=== PATIENT | female | born 1985 | race Caucasian/White ===

== ENCOUNTER 2023-07-31 19:54 | Emergency (ER) | payer BC, SELFPAY ==
[2023-07-31 20:00] VITALS: BP 130/86
--- NOTE | 2023-07-31 21:17 | ED.GENMED ---
History of Present Illness
General
Chief Complaint: Fever
Source: patient
Exam Limitations: none
Time Seen by Provider: 07/31/23 21:05
Nursing documentation reviewed up to this point in time: agreed with
Travel History
Have you had any contact with someone who has COVID-19?: No
Do you have any symptoms of coronavirus? Fever > 100 degrees, chills, cough, shortness of breath, sore throat, loss of taste or smell, muscle aches, or headache?: No
History of Present Illness
History of Present Illness:
Patient is a 38-year-old female who presents to the ER for evaluation. Patient reports 7 days ago she noticed discomfort to the right side of her breast. 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
developed fevers/chills/shakes. She called her [facility] and was given a prescription for Augmentin for possible mastitis. She has taken 6 doses since. She did have a fever yesterday did not have a fever today until tonight. She reports tonight
around 7:00 her temperature was 102. Because her fever redeveloped she wanted to be sure that the antibiotic is working. She complains of only minimal redness to the top of her breast but does complain of soreness to the top of her right breast.
She denies any nipple discharge. She is currently nursing her 2 yr old 3-4 times per day.
Past History
Past History
ED Past Medical History: GERD and Other (Depression, anxiety)
ED Past Surgical History: None
Social History
Tobacco: Non-smoker
Alcohol: Occasional
Drug: None
Personal:
Living: with family
Employment: Employed
Family History
Family History: Diabetes, CAD and Other (Father with blood clots)
Review of Systems
Review of Systems
Allergies reviewed?: Yes
All Other Systems: ROS reviewed and negative except as documented in HPI and ROS
Constitutional: Reports fever and chills
EENT: Reports no symptoms
Skin: Reports other (right breast pain/fever)
Neurological: Reports no symptoms
Psychiatric: Reports no symptoms
Phy Exam
General Physical Exam
General Presentation: no apparent distress
General age: appears stated age
General Skin: warm and dry
General Habitus: normal
General Mental: alert
General Hydration: appears well hydrated
Neurological Exam
Neurological Exam: alert and oriented x3
Musculoskeletal Exam
Musculoskeletal Exam: full ROM
Skin Exam
Skin Exam: normal color, warm/dry and other (right breast with faint area of erythema to upper breast ; tender to upper breast no nipple discharge nipple not inverted )
Psychiatric Exam
Psychiatric Exam: normal mood/affect
Course
Orders/Labs/Results
Orders:
Orders
07/31/23 21:34
US Breast Right Ltd Urgent
Comment:
Reason For Exam: mastitis right breast with fever
07/31/23 21:44
CBC/With Diff [Complete Blood Count/With Diff] Urgent
CMP [Comprehensive Metabolic Panel] Urgent
Abnormal Lab Results
07/31/23
21:44
Hgb 11.0 L g/dL
(12.0-16.0)
Hct 33.6 L %
(37.0-47.0)
MCV 79.1 L fL
(81.0-99.0)
MCH 25.9 L pg
(27.0-31.0)
MCHC 32.7 L g/dL
(33.0-37.0)
MPV 10.6 H fL
(7.4-10.4)
Glucose 101 H mg/dl
(70-99)
07/31/23 21:44
07/31/23 21:44
Vital Signs
Initial and Last Documented VS:
Initial Vital Signs
Temp Pulse Resp BP Pulse Ox
98.5 F 94 16 130/86 97
07/31/23 20:00 07/31/23 20:00 07/31/23 20:00 07/31/23 20:00 07/31/23 20:00
Last Documented Vital Signs
Temp Pulse Resp BP Pulse Ox
98.5 F 76 18 112/84 100
07/31/23 20:00 07/31/23 22:14 07/31/23 22:14 07/31/23 22:14 07/31/23 22:14
Combat Control Manager consulted with Physician
Combat Control Manager consulted with physician?: Yes
Name of Physician Consulted: lanre
MDM/Problems Addressed
Differential Diagnosis Includes:
not limited to: Mastitis breast abscess
MDM/Problems Addressed:
Patient is a 38-year-old female who has been on antibiotic x 6 doses, Augmentin for mastitis of the right breast. Today she redeveloped fever of 102 around 7 PM tonight which is what prompted her to come to the ER. She complains of only mild faint
redness and there is only mild amount of redness on exam however she does have tenderness to the anterior upper portion of her right breast. Will check ultrasound and labs.
2252:
Ultrasound negative for fluid collection normal white count normal labs. Patient nontoxic.well appearing afebrile. Will have patient continue Augmentin close outpatient follow-up for her hook tender on Thursday.
*Critical Care Note
Total Time (30-74mins, 75-104mins- exclusive of procedures): Not Applicable
ED Attending Note
-
Portions of this chart may have been created with voice recognition software.� Occasional wrong word or��sound alike� substitutions may have occurred due to the inherent limitations of voice recognition software.
Discharge Plan
Departure
Patient Disposition: Home (Routine Discharge)
Date of Disposition: 07/31/23
Time of Disposition: 22:54
Patient with high blood pressure during this ER visit?: Yes
Condition: Fair
Covid-19: Not Applicable
Discharge Problem:
Acute mastitis of right breast
Instructions: Mastitis (DC)
Prescriptions:
No Action
famotidine 40 MG tablet
40 mg PO DAILY
bupropion HCl 150 MG tablet extended release 24 hr
150 mg PO DAILY
aspirin 81 MG tablet,delayed release (DR/EC)
81 mg PO DAILY
Referrals:
NONE,* [Family Provider] -
Activity Restrictions/Additional Instructions:
Continue Augmentin. Continue warm compresses. Follow-up with your hook tender on Thursday for recheck and repeat reevaluation. Return if any worsening of symptoms of increased pain worsening redness worsening swelling fevers or any further
concerns.
Interventions
Interventions:
*Risk Screen - Suicide Last Done: 07/31/23 20:00
*General Assessment Last Done: 07/31/23 20:00
*Neglect/Abuse Screening Last Done: 07/31/23 20:00
*ED COVID-19 Vaccine History Last Done: 07/31/23 21:37
ED- Neurological Assessment Last Done: 07/31/23 21:37
ED-Skin Assessment Last Done: 07/31/23 21:37
[2023-07-31 21:37] VITALS: BMI 35.3
[2023-07-31 21:51] LABS: % Basophils 0.6 % (0-2); % Eosinophils 4.3 % (0-6); % Immature Granulocytes 0.5 % (0-0.5); % Lymphocytes 32.2 % (20.5-51.1); % Monocytes 8.5 % (1.7-9.3); % Neutrophils 53.9 % (42.2-75.2); Absolute Eosinophils 0.3 10^3/uL (0-0.7); Absolute Monocytes 0.5 10^3/uL (0.1-0.6); Absolute Neutrophils 3.4 10^3/uL (1.4-6.5); Hematocrit 33.6 % (37.0-47.0); Mean Corp Hgb Conc. 32.7 g/dL (33.0-37.0); Mean Corpuscular Hgb 25.9 pg (27.0-31.0); Mean Corpuscular Volume 79.1 fL (81.0-99.0); Mean Platelet Volume 10.6 fL (7.4-10.4); Nucleated Red Blood Cells % 0 %; Platelet Count 179 10^3/uL (130-400); Red Blood Cell Count 4.25 10^6/uL (4.20-5.40); Red Cell Dist. Width 14.5 % (11.5-14.5); White Blood Cell Count 6.3 10^3/uL (4.8-10.8)
[2023-07-31 22:14] VITALS: BP 112/84
[2023-07-31 22:26] LABS: ALT (SGPT) 21 U/L (0-35); AST (SGOT) 25 U/L (14-36); Albumin 3.9 g/dl (3.5-5.0); Alkaline Phosphatase 81 U/L (38-126); Blood Urea Nitrogen 11 mg/dl (7-17); Calcium 9.1 mg/dl (8.4-10.2); Carbon Dioxide 24 mmol/L (22-30); Chloride 105 mmol/L (98-107); Estimated Creatinine Clearance > 125 ml/min; Glucose 101 mg/dl (70-99); Potassium 4.1 mmol/L (3.5-5.1); Sodium 136 mmol/L (135-145); Total Bilirubin 0.5 mg/dl (0.2-1.3); Total Protein 6.7 g/dl (6.3-8.2); eGFR > 60.00
== END 2023-07-31 23:00 | disposition home or self-care (01) ==
LOC: EMR 19:54
PROVIDERS: Nurse Practitioner; EMERGENCY PHYSICIAN Student in an Organized Health Care Education/Training Program
DX: N61.0 Mastitis without abscess (principal); K21.9 Gastro-esophageal reflux disease without esophagitis; F41.8 Other specified anxiety disorders; Z82.49 Family history of ischemic heart disease and other diseases of the circulatory system; Z83.3 Family history of diabetes mellitus
CPT/HCPCS: 99284; 76642; 80053; 85025

== ENCOUNTER 2024-06-10 11:35 | Emergency (ER) | payer BC, SELFPAY ==
[2024-06-10 11:48] VITALS: BP 142/77
[2024-06-10 12:28] LABS: % Basophils 0.7 % (0-2); % Eosinophils 1.1 % (0-6); % Immature Granulocytes 0.2 % (0-0.5); % Lymphocytes 39.3 % (20.5-51.1); % Monocytes 9.3 % (1.7-9.3); % Neutrophils 49.4 % (42.2-75.2); Absolute Eosinophils 0.1 10^3/uL (0-0.7); Absolute Lymphocytes 2.1 10^3/uL (1.2-3.4); Absolute Monocytes 0.5 10^3/uL (0.1-0.6); Absolute Neutrophils 2.6 10^3/uL (1.4-6.5); Hematocrit 34.3 % (37.0-47.0); Hemoglobin 10.7 g/dL (12.0-16.0); Mean Corp Hgb Conc. 31.2 g/dL (33.0-37.0); Mean Corpuscular Hgb 23.8 pg (27.0-31.0); Mean Corpuscular Volume 76.2 fL (81.0-99.0); Mean Platelet Volume 10.9 fL (7.4-10.4); Nucleated Red Blood Cells % 0 %; Platelet Count 246 10^3/uL (130-400); Red Cell Dist. Width 14.9 % (11.5-14.5); White Blood Cell Count 5.4 10^3/uL (4.8-10.8)
[2024-06-10 12:32] VITALS: BMI 30.8
[2024-06-10 12:40] LABS: HCG, Serum Qualitative Screen Negative
[2024-06-10 12:43] LABS: ALT (SGPT) 15 U/L (0-35); AST (SGOT) 22 U/L (14-36); Albumin 4.4 g/dl (3.5-5.0); Alkaline Phosphatase 46 U/L (38-126); Blood Urea Nitrogen 12 mg/dl (7-17); Calcium 8.9 mg/dl (8.4-10.2); Carbon Dioxide 25 mmol/L (22-30); Chloride 104 mmol/L (98-107); Estimated Creatinine Clearance > 125 ml/min; Glucose 87 mg/dl (70-99); Potassium 4.7 mmol/L (3.5-5.1); Sodium 139 mmol/L (135-145); Total Bilirubin 0.5 mg/dl (0.2-1.3); Total Protein 7.1 g/dl (6.3-8.2); eGFR > 60.00
--- NOTE | 2024-06-10 13:16 | ED.GENMED ---
History of Present Illness
General
Chief Complaint: Anal/Rectal Problem
Time Seen by Provider: 06/10/24 12:37
History of Present Illness
History of Present Illness:
Patient is a 39-year-old female who complaining of rectal pain. Symptoms have been ongoing since February. She has been seeing a GI doctor who has prescribed her nifedipine and lidocaine for anal fissure. She is scheduled to have Botox injection
at the end of June. States that today her pain has been more severe. It is located in her right travels upward to her abdomen and her right lower quadrant. She has been nauseated but has had no vomiting. No fevers. No rectal bleeding. She
has been passing stools regularly
Past History
Past History
ED Past Medical History: GERD and Other (Depression, anxiety)
ED Past Surgical History: None
Social History
Tobacco: Non-smoker
Alcohol: Occasional
Drug: None
Personal:
Living: with family
Employment: Employed
Family History
Family History: Diabetes, CAD and Other (Father with blood clots)
Phy Exam
Physical Exam
Physical Exam:
GENERAL APPEARANCE: NAD, well developed/ well nourished
EYES lids/conjunctiva normal
EARS/NOSE/THROAT Mucous membranes moist, uvula midline without oral pharyngeal erythema, exudate or swelling
HEAD/NECK normocephalic atraumatic, neck is supple.
RESPIRATORY respiratory effort normal, speaks in full sentences, no accessory muscle use. Lungs clear to auscultation without rhonchi, wheezes, rales
CARDIAC Regular rate and rhythm, no edema.
ABDOMINAL Soft, tenderness in the right lower quadrant. Rectal exam with spasming of anal sphincter, skin tags, no obvious fissure
MUSCLES/EXTREMITIES No abnormal range of motion, no swelling.
SKIN Warm, pink and dry. No rashes
NEUROLOGICAL Speech is clear and appropriate. Normal level of consciousness. 5/5 strength in all extremities.
PSYCH Normal mood and affect. Judgement/competence is appropriate
Course
Orders/Labs/Results
Orders:
Orders
06/10/24 11:50
Test Result ONCE
06/10/24 12:05
Complete Blood Count/With Diff Urgent
Comprehensive Metabolic Panel Urgent
HCG, Serum Qualitative Screen Urgent
Comment: Notify provider if positive test present
06/10/24 13:02
Morphine Sulfate 4 mg IV NOW STA
06/10/24 13:03
CT Abd/pelvis W Iv Cont Urgent
Comment:
Reason For Exam: RLQ pain
06/10/24 15:24
Morphine Sulfate 4 mg .ROUTE .STK-MED ONE
06/10/24 15:26
Morphine Sulfate 4 mg IV NOW STA
Abnormal Lab Results
06/10/24
12:05
Hgb 10.7 L g/dL
(12.0-16.0)
Hct 34.3 L %
(37.0-47.0)
MCV 76.2 L fL
(81.0-99.0)
MCH 23.8 L pg
(27.0-31.0)
MCHC 31.2 L g/dL
(33.0-37.0)
RDW 14.9 H %
(11.5-14.5)
MPV 10.9 H fL
(7.4-10.4)
06/10/24 12:05
06/10/24 12:05
Vital Signs
Initial and Last Documented VS:
Initial Vital Signs
Temp Pulse Resp BP Pulse Ox
97.9 F 95 20 142/77 100
06/10/24 11:48 06/10/24 11:48 06/10/24 11:48 06/10/24 11:48 06/10/24 11:48
Last Documented Vital Signs
Temp Pulse Resp BP Pulse Ox
97.9 F 93 16 116/75 99
06/10/24 11:48 06/10/24 16:22 06/10/24 16:22 06/10/24 16:22 06/10/24 16:22
*Critical Care Note
Total Time (30-74mins, 75-104mins- exclusive of procedures): Not Applicable
ED Attending Note
ED Attending Note
ED Attending Note:
With persistent and worsening rectal pain and anal spasming. She is nontoxic-appearing. Labs are reassuring and CT abdomen without acute disease. Discussed case with patient's colorectal surgeon Dr. Rivera. He recommends 5mg Valium q8 hours to
treat spasming. Rec continue nifedipine/lidocaine 2-3x daily with dibucaine between applications.
-
Portions of this chart may have been created with voice recognition software.� Occasional wrong word or��sound alike� substitutions may have occurred due to the inherent limitations of voice recognition software.
Discharge Plan
Departure
Patient Disposition: Home (Routine Discharge)
Date of Disposition: 06/10/24
Time of Disposition: 16:02
Patient with high blood pressure during this ER visit?: Yes
Discharge Problem:
Proctalgia
Instructions: How to Do a Sitz Bath
Prescriptions:
New
diazepam [Valium] 5 mg tablet
5 mg PO TID PRN (Reason: muscle spasm) Qty: 20 0RF
No Action
famotidine 40 MG tablet
40 mg PO DAILY
bupropion HCl 150 MG tablet extended release 24 hr
150 mg PO DAILY
aspirin 81 MG tablet,delayed release (DR/EC)
81 mg PO DAILY
Referrals:
Neymar Sadler MD [Family Provider] -
Activity Restrictions/Additional Instructions:
Please continue to take nifedipine/lidocaine cream 2-3 times a day using the Dibucaine in between applications. Also take 1000 mg of Tylenol every 6 hours and alternate with 600 mg of Motrin every 6 hours. We have prescribed you Valium to take
every 8 hours which can help with spasming. Please follow-up with Dr. Rivera as an outpatient. Return to the emergency department with new or worsening symptoms.
Interventions
Interventions:
*Risk Screen - Suicide Last Done: 06/10/24 11:48
*General Assessment Last Done: 06/10/24 11:48
*Neglect/Abuse Screening Last Done: 06/10/24 11:48
ED- Fall Risk Assessment Last Done: 06/10/24 12:32
*ED COVID-19 Vaccine History Last Done: 06/10/24 12:32
*Nursing Disposition Last Done: 06/10/24 16:27
RO-Bcvqbq-Wfvozbuxcu Assessment Last Done: 06/10/24 12:32
ED-Skin Assessment Last Done: 06/10/24 12:32
Discharge Date and Time
Discharge Date/Time: 06/10/24 16:27
Print Language: NORTHER[place] IRISH
[2024-06-10] MEDS: MORPHINE SULFATE 4 MG IV ×2 (13:20→15:26)
[2024-06-10 13:22] VITALS: BP 125/90
[2024-06-10 16:22] VITALS: BP 116/75
== END 2024-06-10 16:27 | disposition home or self-care (01) ==
LOC: EMR 11:35
PROVIDERS: Physician Assistant; EMERGENCY PHYSICIAN Emergency Medicine; FAMILY PHYSICIAN Internal Medicine
DX: K62.89 Other specified diseases of anus and rectum (principal); R03.0 Elevated blood-pressure reading, without diagnosis of hypertension
CPT/HCPCS: 99285; 96374; 96376; 74177; 80053; 84703; 85025; Q9967

== ENCOUNTER 2024-06-29 06:41 | Day surgery (SDC) | payer BC, SELFPAY ==
[2024-06-29 08:37] VITALS: BP 118/78
[2024-06-29] MEDS: NORMOSOL-R/PLASMALYTE-A 1000 IV (08:56)
[2024-06-29 11:35] VITALS: BP 103/51
--- NOTE | 2024-06-29 11:36 | W.IMMPOSTOP ---
Surgical Immed Post Op Note
-
Primary Surgeon: Tejinder Rivera MD
Assisting Surgeon: None
Pre-op Diagnosis: Anal fissure
Post-op Diagnosis: Anal fissure
Procedure Performed: Exam under anesthesia, excision of skin tags x 2, Botox injection of internal sphincter muscle, bilateral pudendal nerve block
Anesthesia Type: Sedation with local
Specimen / Cultures: Anterior skin tag, right anterior skin tag, sentinel pile
Estimated Blood Loss: 5
Complications: None
Operative Findings: Per op note
--- NOTE | 2024-06-29 11:37 | OR.RPT ---
Operative Report
Operative Report
DATE OF OPERATION: 06/29/2024
SURGEON: Tejinder Rivera MD
PREOPERATIVE DIAGNOSIS: Anal fissure
POSTOPERATIVE DIAGNOSIS: Posterior midline anal fissure, anal skin tags
OPERATION: Exam under anesthesia, excision of skin tags x 2, injection of botox into internal anal sphincter, bilateral pudendal nerve block
ASSISTANTS:
1. None
ANESTHESIA: MAC w/ local
ESTIMATED BLOOD LOSS: 5 mL
FINDINGS:
1. Large pendulous skin tags in the anterior midline and right anterior quadrant; excised
2. Posterior midline fissure, about 1 cm x 6 mm, exposed fibers of internal sphincter, no granulation tissue, associated with small sentinel pile; excised
3. Injected a total of 100 units of Botox into internal sphincter in 4 quadrants
SPECIMENS:
1. Anterior skin tag
2. Right anterior skin tag
3. [place] pile
DRAINS: N/A
COMPLICATIONS: None
INDICATIONS: The patient is a 39-year-old female who initially presented with an acute anal fissure. She was treated by Mireille Chin with nonoperative measures. Her symptoms plateaued, but then eventually worsened. Therefore, the patient was
recommended to have surgery. I explained that her exams were done by Mireille Chin and were limited due to pain. Therefore, my plan would be to perform an exam under anesthesia to confirm the posterior midline fissure with hypertonic internal
sphincter. In this situation, I would proceed with Botox injection. However, if the internal sphincter was not hypertonic, I would perform biopsies of the fissure to rule out atypical causes of fissure. If I identified any skin tags that may be
interfering, I would remove these. I also explained that I may discover pathology that was not initially anticipated. If so, I would perform the necessary interventions without exceeding the risks discussed (i.e.�additional biopsies). The risks,
benefits and alternatives were discussed. Risks described included, but not limited to bleeding, infection, urinary retention, damage to nearby structures such as the anal sphincter, fecal incontinence, recurrence, and anesthetic risks. The patient
understood and agreed to proceed. The consent was signed and placed in the chart.
PROCEDURE IN DETAIL: The patient was taken to the operating room. The patient was placed on the operating table in prone position. Sequential compression devices were placed bilaterally. Sedation was commenced without complication. Two seat belts
were secured around the legs and upper back. The buttocks were taped apart. The perineum was prepped and draped in the usual fashion. A time-out was then performed verifying the correct patient, procedure, operative site, positioning, and special
equipment.
Local anesthesia used was a mixture of 60 mL of 0.25% Marcaine with epinephrine and 0.6 mg of dexamethasone. 40 mL was injected perianally at the beginning of the case. The anorectal exam was performed assessing all four quadrants of the anal canal
using Hill-Tomlinson retractors in progressively increasing size. There were 2 large pendulous skin tags in the anterior midline and right anterior quadrant at the anal verge. There were scattered small skin tags at the anal verge. There was a
small 1 cm x 6 mm posterior midline fissure with evidence of chronicity. There was exposed internal sphincter muscle and a small sentinel pile. There were small internal hemorrhoids without irritation or bleeding. The internal sphincter was
hypertonic. There was no proctitis and no other anal pathology noted.
I proceeded with excision of the large skin tags to minimize irritation associated with them. I grasped each skin tag with an Allis and elevated it. I used Metzenbaum scissors to excise the tag at its base, taking care to avoid injury to the
underlying sphincter. The tags were passed off for pathology. Hemostasis was assured with electrocautery.
100 units of Botox was drawn up with 2 mL of sterile saline. Using a 27-gauge needle, the Botox was injected in 4 quadrants in equal portions, specifically 25 units in the anterior midline, right lateral quadrant, posterior midline and left lateral
quadrant. Care was taken to avoid incidental injection into the external sphincter. The fissure base appeared clean and without granulation tissue, so I did not fulgurate it.
The remaining 20 mL of local were injected. 5 mL was injected bilaterally for a pudendal nerve block. 10 mL was injected around the surgical site and perianally. Hemostasis was reassessed once more using the small Hill-Tomlinson and was confirmed.
At this point, the procedure was complete. All needle, sponge and instrument counts were correct. The patient tolerated the procedure well and was transferred to the recovery room in stable condition with gauze dressing in place secured with silk
tape.
DICTATED BY: Tejinder Rivera MD
[2024-06-29 11:47] VITALS: BP 96/61
[2024-06-29 12:01] VITALS: BP 95/51
[2024-06-29 12:15] VITALS: BP 94/62
[2024-06-29 12:30] VITALS: BP 112/75
== END 2024-06-29 12:58 | disposition home or self-care (01) ==
LOC: SDS 06:41
PROVIDERS: ATTENDING PHYSICIAN Surgery
DX: K60.2 Anal fissure, unspecified (principal); K64.4 Residual hemorrhoidal skin tags
CPT/HCPCS: 46200; 11200; 88304; J0585

== ENCOUNTER 2024-06-30 10:33 | Emergency (ER) | payer BC, SELFPAY ==
[2024-06-30 10:45] VITALS: BP 146/95
--- NOTE | 2024-06-30 10:57 | ED.GENMED ---
History of Present Illness
General
Chief Complaint: Post Operative Problem(s)
Source: patient and records
Exam Limitations: none
Time Seen by Provider: 06/30/24 10:51
History of Present Illness
History of Present Illness:
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 Patient has been having ongoing rectal pain since February 2024 and has been unable to sleep at night for several months due to her symptoms. Patient
underwent excision of anal skin tags and injection of Botox into the internal anal sphincter yesterday with Dr. Rivera. Patient had no pain yesterday due to the nerve block but started to have severe pain this morning. She reports pain in her
rectum and posterior vaginal area. She has been taking Tylenol, naproxen, and Valium without much relief. She was able to have a bowel movement this morning around 8 AM which was normal. She reports nausea but denies any vomiting. No abdominal
pain, fevers, difficulty urinating.
Past History
Past History
ED Past Medical History: GERD and Other (Depression, anxiety)
ED Past Surgical History: None
Social History
Tobacco: Non-smoker
Alcohol: Occasional
Drug: None
Personal:
Living: with family
Employment: Employed
Family History
Family History: Diabetes, CAD and Other (Father with blood clots)
Phy Exam
Physical Exam
Physical Exam:
Crying due to pain, non-toxic
General Physical Exam
General Presentation: mild distress
General age: appears stated age
General Skin: warm and dry
General Habitus: normal
General Mental: alert
ENT Exam
ENT Exam: normocephalic
Pulmonary Exam
Pulmonary Exam: no respiratory distress
Gastrointestinal Exam
Rectal Exam: other (External hemorrhoid noted that is non-thrombosed. No signs of infection or drainage. NAVJOT deferred due to pain.)
Neurological Exam
Neurological Exam: alert
Tona Coma Scale
Eye Opening: Spontaneous
Verbal Response: Oriented
Motor Response: Obeys Commands
GCS Total Score: 15
Skin Exam
Skin Exam: normal color and warm/dry
Course
Orders/Labs/Results
Orders:
Orders
06/30/24 10:56
0.9% Sodium Chloride 1000 ml [Nss] 1,000 ml IV BOLUS
HYDROmorphone [Dilaudid] 0.5 mg IV NOW STA
Ondansetron Injectable [Zofran] 4 mg IV NOW STA
06/30/24 11:10
Complete Blood Count/With Diff Urgent
Comprehensive Metabolic Panel Urgent
06/30/24 12:09
HYDROmorphone [Dilaudid] 0.5 mg IV NOW STA
Ketorolac [Toradol] 15 mg IV NOW STA
Abnormal Lab Results
06/30/24
11:10
RBC 4.14 L 10^6/uL
(4.20-5.40)
Hgb 9.6 L g/dL
(12.0-16.0)
Hct 31.6 L %
(37.0-47.0)
MCV 76.3 L fL
(81.0-99.0)
MCH 23.2 L pg
(27.0-31.0)
MCHC 30.4 L g/dL
(33.0-37.0)
RDW 15.3 H %
(11.5-14.5)
06/30/24 11:10
06/30/24 11:10
Vital Signs
Initial and Last Documented VS:
Initial Vital Signs
Temp Pulse Resp BP Pulse Ox
98.5 F 100 18 146/95 100
06/30/24 10:45 06/30/24 10:45 06/30/24 10:45 06/30/24 10:45 06/30/24 10:45
Last Documented Vital Signs
Temp Pulse Resp BP Pulse Ox
98.5 F 82 18 114/76 100
06/30/24 10:45 06/30/24 13:25 06/30/24 13:25 06/30/24 13:25 06/30/24 13:25
MDM/Problems Addressed
Differential Diagnosis Includes:
39yoF here with rectal pain. Ongoing pain x several months. Had a skin tag removal and botox injection to anal sphincter yesterday. Here with severe pain after her nerve block wore off. Normal BM his morning. VSS. She is tearful on exam due to pain
but is non-toxic appearing. External hemorrhoid noted. No signs of infection or bleeding noted. Differential diagnosis includes: postoperative pain, anal fissure, proctalgia
Initial ED plan: Check CBC and CMP. IV Dilaudid and Toradol for pain. Will discuss with colorectal surgery team.
*Critical Care Note
Total Time (30-74mins, 75-104mins- exclusive of procedures): Not Applicable
Update Note
Update Note:
Labs unremarkable including normal white count. Patient was evaluated by Dr. Plascencia. Anal exam unremarkable and patient cleared for discharge. Symptoms thought to be 2/2 exacerbation of anal fissure symptoms from the procedure yesterday. Dr. Plascencia
recommending Valium/Tramadol for pain. Patient does not feel her symptoms are related to spasms and tried Valium without relief this morning. Prescription for Tramadol provided. She was advised to f/u with her colorectal surgery team for further
care. Patient discharged in stable condition.
ED Attending Note
-
Portions of this chart may have been created with voice recognition software.� Occasional wrong word or��sound alike� substitutions may have occurred due to the inherent limitations of voice recognition software.
Discharge Plan
Departure
Patient Disposition: Home (Routine Discharge)
Date of Disposition: 06/30/24
Time of Disposition: 13:06
Patient with high blood pressure during this ER visit?: Yes
Discharge Problem:
Pain, rectum, Post-operative pain
Instructions: Postoperative Pain (DC)
Prescriptions:
New
tramadol 50 mg tablet
50 mg PO Q6H PRN (Reason: Pain) Qty: 20 0RF
No Action
famotidine 40 MG tablet
40 mg PO DAILY
diazepam [Valium] 5 mg tablet
5 mg PO TID PRN (Reason: muscle spasm) Qty: 20 0RF
sertraline [Zoloft] 100 mg Tablet
100 mg PO DAILY
Metamucil (sugar) Powder
2 tbsp PO DAILY
polyethylene glycol 3350 [Miralax] 17 gram Powder In Packet
17 g PO DAILY
Nifedipine-Lidocaine Ointment
1 applic DC BID
Rx Instructions:
0.3%
ibuprofen 600 mg Tablet
600 mg PO Q6H PRN (Reason: pain)
naproxen [Naprosyn] 500 mg tablet
500 mg PO BID Qty: 14 0RF
Referrals:
Krzysztof Jeong CRNP [Family Provider] -
Tejinder Rivera MD [Active] -
Activity Restrictions/Additional Instructions:
Take Tylenol and ibuprofen as needed. Take Tramadol as needed for severe breakthrough pain.
Please follow-up with your colorectal surgery team.
Interventions
Interventions:
*Risk Screen - Suicide Last Done: 06/30/24 10:45
*General Assessment Last Done: 06/30/24 10:45
*Neglect/Abuse Screening Last Done: 06/30/24 13:25
*ED COVID-19 Vaccine History Last Done: 06/30/24 10:45
*Nursing Disposition Last Done: 06/30/24 13:25
ED-Skin Assessment Last Done: 06/30/24 13:45
Discharge Date and Time
Discharge Date/Time: 06/30/24 13:28
Print Language: TAIWANESE
[2024-06-30] MEDS: DILAUDID 0.5 MG IV ×2 (11:00→12:12)
[2024-06-30] MEDS: ZOFRAN 4 MG IV (11:00)
[2024-06-30] MEDS: NSS 1000 IV (11:07)
[2024-06-30 11:08] VITALS: BMI 29.5
[2024-06-30 11:26] LABS: % Basophils 0.6 % (0-2); % Eosinophils 0.1 % (0-6); % Immature Granulocytes 0.4 % (0-0.5); % Monocytes 7.6 % (1.7-9.3); % Neutrophils 62.3 % (42.2-75.2); Absolute Lymphocytes 2.1 10^3/uL (1.2-3.4); Absolute Monocytes 0.5 10^3/uL (0.1-0.6); Absolute Neutrophils 4.4 10^3/uL (1.4-6.5); Hematocrit 31.6 % (37.0-47.0); Hemoglobin 9.6 g/dL (12.0-16.0); Mean Corp Hgb Conc. 30.4 g/dL (33.0-37.0); Mean Corpuscular Hgb 23.2 pg (27.0-31.0); Mean Corpuscular Volume 76.3 fL (81.0-99.0); Mean Platelet Volume 10.4 fL (7.4-10.4); Nucleated Red Blood Cells % 0 %; Platelet Count 226 10^3/uL (130-400); Red Blood Cell Count 4.14 10^6/uL (4.20-5.40); Red Cell Dist. Width 15.3 % (11.5-14.5); White Blood Cell Count 7.1 10^3/uL (4.8-10.8)
[2024-06-30 11:41] LABS: ALT (SGPT) 17 U/L (0-35); AST (SGOT) 21 U/L (14-36); Alkaline Phosphatase 49 U/L (38-126); Blood Urea Nitrogen 15 mg/dl (7-17); Carbon Dioxide 26 mmol/L (22-30); Chloride 105 mmol/L (98-107); Estimated Creatinine Clearance 107 ml/min; Glucose 95 mg/dl (70-99); Potassium 3.7 mmol/L (3.5-5.1); Sodium 136 mmol/L (135-145); Total Bilirubin 0.5 mg/dl (0.2-1.3); Total Protein 6.6 g/dl (6.3-8.2); eGFR > 60.00
[2024-06-30] MEDS: TORADOL 15 MG IV (12:13)
[2024-06-30 13:25] VITALS: BP 114/76
--- NOTE | 2024-06-30 15:23 | W.PN.UPDATE ---
Update Note
Progress Note Update
Seen earlier by me in ER POD 1 after anal Botox with tag excision for fissure by Dr. Rivera. Vitals and labs fine and anal exam unremarkable. I concluded this was simply fissure symptom exacerbation. Recommended pain meds and some prn Valium.
Oked discharge from ER.
== END 2024-06-30 13:28 | disposition home or self-care (01) ==
LOC: EMR 10:33
PROVIDERS: Physician Assistant; EMERGENCY PHYSICIAN Student in an Organized Health Care Education/Training Program; FAMILY PHYSICIAN Nurse Practitioner Adult Health
DX: G89.18 Other acute postprocedural pain (principal); K62.89 Other specified diseases of anus and rectum; K64.4 Residual hemorrhoidal skin tags; K21.9 Gastro-esophageal reflux disease without esophagitis
CPT/HCPCS: 96374; 96375; 96376; 96361; 99284; 80053; 85025

== ENCOUNTER 2024-08-30 06:19 | Day surgery (SDC) | payer BC, SELFPAY | END 2024-08-30 10:21 | disposition home or self-care (01) | LOC: GI 06:19 | PROVIDERS: ATTENDING PHYSICIAN Surgery | DX: K62.5 Hemorrhage of anus and rectum (principal); K64.4 Residual hemorrhoidal skin tags; K64.8 Other hemorrhoids; D12.5 Benign neoplasm of sigmoid colon | CPT/HCPCS: 45385; 88305 ==